=== PATIENT | female | born 1975 | race African-American/Black ===

== ENCOUNTER → 2021-12-18 | Day surgery (SDC) | payer BC, OTHER | END | disposition home or self-care (01) | LOC: FMAMMOTONE 08:30 | PROVIDERS: ATTEND Obstetrics & Gynecology | PROC: 0HBT3ZX Excision of Right Breast, Percutaneous Approach, Diagnostic (ICD-10-PCS; principal; 2021-12-18) | DX: D05.11 Intraductal carcinoma in situ of right breast (principal); N64.1 Fat necrosis of breast; N64.89 Other specified disorders of breast; R92.0 Mammographic microcalcification found on diagnostic imaging of breast | CPT/HCPCS: 19081; 76098-TC-FY; 87899; 88305-TC; A4648 ==

== ENCOUNTER 2022-02-10 04:15 | Day surgery (SDC) | payer BC, OTHER ==
[2022-02-06 16:56] VITALS: BMI 24.9
[2022-02-10 08:03] LABS: PH,URINE 5.5 (5.0-8.0); URINE APPEARANCE CLEAR; URINE BILIRUBIN NEGATIVE (NEGATIVE); URINE COLOR YELLOW; URINE GLUCOSE (UA) NEGATIVE (NEGATIVE); URINE KETONE TRACE (NEGATIVE); URINE LEUK ESTERASE NEGATIVE (NEGATIVE); URINE NITRITE NEGATIVE (NEGATIVE); URINE PROTEIN NEGATIVE (NEGATIVE)
[2022-02-10] MEDS ORDERED: LIDOCAINE HCL 1%, 10 MG/ML (20ML VIAL) ONE ×2 (09:41→09:50)
[2022-02-10] MEDS ORDERED: oxyCODONE HCL 5 MG TABLET PO PRN (09:56)
[2022-02-10] MEDS ORDERED: ONDANSETRON 4 MG/2 ML VIAL IVPUSH PRN (09:56)
[2022-02-10] MEDS ORDERED: LACTATED RINGERS SOLUTION 1,000 ML IV SCH (10:00)
[2022-02-10] MEDS ORDERED: LIDOCAINE HCL/PF 2% SDV 5ML VIAL ONE (10:15)
[2022-02-10] MEDS ORDERED: DEXAMETHASONE SOD PHOSPHATE 4 MG/1 ML VIAL ONE (10:15)
[2022-02-10] MEDS ORDERED: PROPOFOL 20 ML ONE ×2 (10:16→10:37)
[2022-02-10] MEDS ORDERED: MIDAZOLAM HCL 2 MG/2 ML SINGLE DOSE VIAL ONE (10:16)
[2022-02-10] MEDS ORDERED: ceFAZolin SODIUM 1 GM VIAL IVPB ONE (10:37)
[2022-02-10] MEDS ORDERED: ceFAZolin SODIUM 1 GM VIAL ONE (10:39)
[2022-02-10] MEDS ORDERED: LIDOCAINE HCL 1%, 10 MG/ML (20ML VIAL) INF ONE ×2 (10:47)
[2022-02-10 12:38] VITALS: PULSE 86; TEMP 98.2
[2022-02-10 13:29] VITALS: BP 125/77
== END 2022-02-10 13:29 | disposition home or self-care (01) ==
LOC: JASU-SURG 04:15
PROVIDERS: ATTEND Surgery
PROC: 0HBT0ZZ Excision of Right Breast, Open Approach (ICD-10-PCS; principal; 2022-02-10 10:00)
DX: D05.91 Unspecified type of carcinoma in situ of right breast (principal)
CPT/HCPCS: 19281; 76098-TC-FY; 81003; 81025; 88307-TC; 88341-TC; 88342-TC; 94760

== ENCOUNTER → 2025-01-24 | Day surgery (SDC) | payer BC, OTHER | END | disposition home or self-care (01) | LOC: FMAMMOTONE 12:35 | PROVIDERS: ATTEND Surgery | PROC: 0HBT3ZX Excision of Right Breast, Percutaneous Approach, Diagnostic (ICD-10-PCS; principal; 2025-01-24) | DX: D05.11 Intraductal carcinoma in situ of right breast (principal); N64.1 Fat necrosis of breast; N64.89 Other specified disorders of breast; R92.8 Other abnormal and inconclusive findings on diagnostic imaging of breast | CPT/HCPCS: 19081; 19284; 76098-TC-FY; 88305-TC; 88342-TC ==

== ENCOUNTER 2025-05-29 06:13 | Day surgery (SDC) | payer BC, OTHER ==
[2025-05-23 17:28] VITALS: BMI 23.2
[2025-05-29] MEDS ORDERED: BUPIVACAINE HCL/PF 0.25% (2.5MG/ML) 10 ML VIAL ONE (07:32)
[2025-05-29] MEDS ORDERED: LIDOCAINE HCL 1%, 10 MG/ML (20ML VIAL) ONE (07:32)
[2025-05-29] MEDS ORDERED: MIDAZOLAM HCL 2 MG/2 ML SINGLE DOSE VIAL ONE (08:37)
[2025-05-29] MEDS ORDERED: LIDOCAINE HCL/PF 2% SDV 5ML VIAL ONE (08:37)
[2025-05-29] MEDS ORDERED: PROPOFOL 20 ML ONE (08:37)
[2025-05-29] MEDS ORDERED: ONDANSETRON 4 MG/2 ML VIAL ONE ×2 (09:30→10:09)
[2025-05-29] MEDS ORDERED: KETOROLAC TROMETHAMINE 30 MG/1 ML VIAL ONE ×2 (09:30→10:09)
[2025-05-29] MEDS ORDERED: DEXAMETHASONE SOD PHOSPHATE 4 MG/1 ML VIAL ONE (09:30)
[2025-05-29] MEDS: LIDOCAINE 1% P/F 10 MG/ML VIAL INF ONE (09:35)
[2025-05-29] MEDS ORDERED: ONDANSETRON 4 MG/2 ML VIAL IVPUSH PRN (10:24)
[2025-05-29] MEDS ORDERED: PROMETHAZINE HCL 25 MG/1 ML VIAL IVPB PRN (10:24)
[2025-05-29] MEDS: LACTATED RINGERS SOLUTION 1,000 ML IV SCH (10:44)
[2025-05-29] MEDS ORDERED: ACETAMINOPHEN INJECTION 100 ML ONE (10:46)
[2025-05-29] MEDS: ACETAMINOPHEN 1000 MG/100 ML BAG IVPB ONE (10:47)
[2025-05-29 13:52] VITALS: RESP 18; TEMP 97.8
[2025-05-29 13:56] VITALS: BP 138/84; PULSE 68
== END 2025-05-29 12:28 | disposition home or self-care (01) ==
LOC: JASU-SURG 06:13
PROVIDERS: ATTEND Surgery
PROC: 0HBT0ZZ Excision of Right Breast, Open Approach (ICD-10-PCS; principal; 2025-05-29 09:35)
DX: D05.11 Intraductal carcinoma in situ of right breast (principal)
CPT/HCPCS: 19281; 19282; 76098-TC-FY; 82962; 86850; 86900; 86901; 88307-TC; 94760; A4648